=== PATIENT | female | born 1930 | race Caucasian/White ===

== ENCOUNTER 2020-02-15 13:23 | Inpatient (IN) | payer MEDICARE, OTHER ==
[2020-02-15] MEDS ORDERED: Succinylcholine 200 MG/10 ml SYRINGE FS ONE (13:43)
[2020-02-15] MEDS ORDERED: Fentanyl 100 MCG/2 ML VIAL ONE ×2 (14:13→14:41)
[2020-02-15] MEDS ORDERED: Propofol 1,000 MG/100 ML VIAL IV ONE (14:22)
[2020-02-15 14:30] LABS: #Lymphocytes 0.4 thou/uL (1.20-3.40); #Monocytes 0.7 thou/uL (0.11-0.59); #Neutrophils 7.1 thou/uL (1.40-6.50); %Basophils 0.3 % (0.0-1.0); %Eosinophils 0.4 % (0.0-10.0); %Lymphocytes 5.1 % (21.0-51.0); %Monocytes 8.8 % (0.0-10.0); %Neutrophils 85.4 % (42.0-75.0); Hemoglobin 12.4 g/dL (12.0-16.0); Mean Corpuscular HGB CONC 30.4 g/dL (32.0-36.0); Mean Corpuscular Hemoglobin 31.3 pg (27.0-31.0); Platelet Count 248 thou/uL (130-400); Red Blood Cell (RBC) Count 3.98 mill/uL (4.20-5.40); White Blood Cell (WBC) Count 8.3 thou/uL (4.8-10.8)
[2020-02-15 14:30] LABS: Actual Bicarbonate (HCO3a) 38.9 mEq/L (22-28); Analyzer IN Cardio ER; Base Excess (BEa) 11.9 mEq/L (-2.0 to +3.0); Carboxyhemoglobin (COHb) 0.5 gm% (0.0-3.0); Hemoglobin (Hb) 11.8 g/dL (12.0-16.0); O2 Tension (PaO2), arterial 78.7 mmHg (> 60.0); Potassium - ABG Lab 5.51 mmol/L (3.70-5.30); pH, Arterial 7.41 (7.35-7.45)
[2020-02-15] MEDS ORDERED: fentaNYL Citrate/PF 2,000 MCG in Sodium Chloride 0.9% 60 ML IV SCH (14:30)
[2020-02-15 14:35] LABS: CO2 Tension 63.2 mmHg (35.0-45.0); Puncture Site RRA
[2020-02-15 14:36] LABS: INR-International Normal Ratio 1.1; PTT 24.7 sec (22.9-36.1); Prothrombin Time 14.7 sec (12.0-14.7)
[2020-02-15] MEDS ORDERED: Furosemide 40 MG/4 ML VIAL ONE (14:41)
[2020-02-15 14:44] LABS: ALT (SGPT) 61 U/L (8-55); AST (SGOT) 43 U/L (5-34); Alkaline Phosphatase 92 U/L (40-110); BUN (Urea Nitrogen) 55 mg/dL (9.8-20.1); Bilirubin, Total 0.6 mg/dL (0.2-1.2); CK (CPK) 36 U/L (29-168); Calc. Creatinine Clearance 0 mL/min (70-130); Globulin 2.5 g/dL (2.4-3.5); Glucose 202 mg/dL (83-110); Magnesium 2.6 mg/dL (1.6-2.6); Protein, Total 6.5 g/dL (6.0-8.3)
[2020-02-15 14:53] LABS: Anion Gap 19 mmol/L (10-20); Carbon Dioxide 40 mmol/L (23-31); Chloride 92 mmol/L (98-107); Potassium 6.3 mmol/L (3.5-5.1); Sodium 145 mmol/L (136-145)
[2020-02-15 15:06] LABS: CKMB 4.6 ng/mL (0-6.6)
--- NOTE | 2020-02-15 15:43 | RAD ---
PORTABLE CHEST: 02/15/20 HISTORY: Hypoxic, unresponsive. COMPARISON: 01/17/20 exam. Endotracheal and NG tubes are in satisfactory position. Heart size is enlarged. Left sided pleural ch anges are similar to the previous examination. Increased density in the right base suggests increase d right sided effusion. There is what appears to be more of an infiltrative type lung changes in the right lung with a nodular area of infiltrate in the right upper lobe. This has developed since the pr evious 01/17/20 exam. IMPRESSION: 1. Endotracheal and NG tubes in satisfactory position. 2. Left sided pleural and parenchymal lung changes fairly similar to the previous examination. I ncreasing right sided effusion and infiltrative lung changes with what appears to be more of a nodula r infiltrate in the right upper lobe. Changes appear to represent a combination of pulmonary edema an d possible associated pneumonic infiltrate. POS: AH
[2020-02-15 15:50] LABS: SARS-CoV-2 NAA Rapid Test Not Detected (NotDetected)
[2020-02-15 16:23] LABS: Bilirubin Negative (Negative); Blood, Urine Negative (Negative); Clarity Turbid (Clear); Glucose, Urine (Dipstick) Normal (Negative); Ketone, Urine Negative (Negative); Leukocyte Negative Leu/uL (Negative); Nitrite Negative (Negative); Protein, Urine (Dipstick) 20 mg/dL (Neg-Trace); Specific Gravity, Urine 1.014 (1.002-1.036); Urobilinogen Normal mg/dL (Less than 2)
[2020-02-15] MEDS ORDERED: Acetaminophen 650 MG Suppository PR PRN (16:51)
[2020-02-15] MEDS ORDERED: Ondansetron PF 4 MG/2 ML Vial IVP PRN (16:51)
[2020-02-15] MEDS ORDERED: Senokot S 8.6-50 MG TAB PO PRN (16:51)
[2020-02-15] MEDS ORDERED: Ondansetron ODT 4 MG TAB PO PRN (16:51)
[2020-02-15] MEDS ORDERED: Acetaminophen 325 MG TAB PO PRN (16:51)
[2020-02-15] MEDS ORDERED: DISCONTINUE PREVIOUS NARCOTIC PAIN MEDICATIONS AND BENZODIAZEPINES FS SCH (18:00)
[2020-02-15] MEDS ORDERED: Propofol BOLUS 1,000 MG/100 ML VIAL IV PRN (18:00)
[2020-02-15] MEDS ORDERED: Propofol 1,000 MG/100 ML VIAL IV PRN (18:00)
[2020-02-15] MEDS ORDERED: Morphine 2 MG/ML VIAL SLOW IVP PRN (18:00)
[2020-02-15] MEDS ORDERED: Fentanyl BOLUS 250 ML IVPB PRN (18:00)
[2020-02-15 18:22] LABS: Troponin I 0.079 ng/mL (< 0.028)
--- NOTE | 2020-02-15 18:29 | HP ---
PRIMARY CARE PHYSICIAN: [facility]. PRIMARY ENGINEERING AND SCIENTIFIC PROGRAMMER: Joshua Quiñones MD CHIEF COMPLAINT: Shortness of breath. HISTORY OF PRESENT ILLNESS: This is an 89-year-old white female with a known history of diastolic congestive heart failure and atrial fibrillation, who has had problems with hypoxia previously and was on home oxygen at one point per Dr. Quiñones's last note. EMS was called due to the patient having unresponsiveness, was reportedly having more shortness of breath recently per family. When EMS arrived, the patient was hypoxic at 80%. She was put on 4 L nasal cannula, and it came to 92%. She was transported to the emergency room. By the time, she got to the ER, she was on a face mask and saturating in the high 80s. She started desaturating quickly after that when the ER physician came in to talk to her, and then became responsive. She was apparently having a lot of increased work of breathing. It looks like she just got tired out per the ER physician. At that time, she was intubated and put on the ventilator. The patient's blood pressure was initially going to marginal, however, it improved some and then he gave her some Lasix. She also had to be started on some fentanyl for sedation. This caused a temporary blood pressure, but it has resolved now. All history taken from the chart as the patient was recently in [facility] at the beginning of this month. REVIEW OF SYSTEMS: Unable to obtain. PAST MEDICAL HISTORY: 1. Atrial fibrillation with previous ablation and return of atrial fibrillation. 2. Diastolic congestive heart failure with previous hypoxia. 3. Coronary artery disease. 4. 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 5. Post herpetic neuralgia. PAST SURGICAL HISTORY: 1. Cholecystectomy. 2. Hysterectomy. 3. Cardiac ablation. 4. Coronary stents. SOCIAL HISTORY: No tobacco, alcohol, or illicit drug use. The patient lives with her daughter who is her medical decision maker. Her name is Cheri Lim. FAMILY HISTORY: Positive for cardiac disease. ALLERGIES: PENICILLIN. CURRENT MEDICATIONS: Unable to obtain secondary to the patient's mental status. According to discharge summary from [facility] on January 20, the patient was on: 1. Eliquis 5 mg twice a day. 2. Furosemide 40 mg daily. 3. Neurontin 100 mg 3 times a day. 4. Magnesium oxide 400 mg daily. 5. Potassium chloride 20 mEq daily. 6. Digoxin 0.125 mg daily. 7. Cardizem CD 120 mg daily. PHYSICAL EXAMINATION: VITAL SIGNS: Blood pressure 100/75, pulse 100, respirations 14 on the ventilator, temperature 98.8, O2 saturation 100% on the ventilator. GENERAL: This is an elderly white female, who is intubated and sedated on the ventilator. HEENT: Pupils are 2 mm bilateral. They are equally round and they are reactive to light. Oropharynx with the ET tube in place. NECK: Without any deformity or injury visible. HEART: Regular rate and rhythm. No murmurs, rubs, or gallops. LUNGS: The patient has decent air movement throughout with some mild crackles in the left base. ABDOMEN: Soft, nondistended. Normoactive bowel sounds. No hepatosplenomegaly or other masses. EXTREMITIES: The patient has 1+ pitting edema up to about the knees on bilateral lower extremities. SKIN: No rashes or lesions noted. NEUROLOGIC: The patient is currently sedated, unable to follow commands. LABORATORY DATA: CBC with a white blood cell count of 8.3; neutrophils 85%; hemoglobin, hematocrit, and platelets are all normal. Coagulation profile within normal limits. Arterial blood gas on the vent shows a normal pH, pCO2 of 63, and pO2 of 78. Complete metabolic panel is notable for potassium of 6.3, BUN of 55, creatinine of 1.32, carbon dioxide is 40, chloride is 92, glucose was 202, AST was 43, ALT of 61. The rest was normal. CK-MB was negative. Troponin was indeterminate x1 of 0.072 is the current level that is being down from 0.222 at her last hospitalization. Her brain natriuretic peptide is elevated at 1338. This is actually less than her last admission as well at 2880. EKG done in the emergency room shows atrial fibrillation with controlled ventricular response. There are some PVCs. There is a right bundle-branch block and left anterior fascicular block and some nonspecific T-wave changes. Chest x-ray, I did review the chest x-ray done in the emergency room along with the radiologist's report. It does show a persistent left-sided pleural effusion and then some possibly worsened either some increasing right-sided effusion and infiltrative lung changes more nodular in the right upper lobe could be pulmonary edema and possible associated pneumonic infiltration. Rapid influenza A and B and COVID test were all negative. ASSESSMENT: 1. Acute respiratory failure with hypoxia and hypercapnia. The patient is currently intubated and ventilated and now saturating well. Suspect this underlying congestive heart failure is the etiology. No significant evidence of infection at this time. There was a note of her being do not attempt resuscitation at her last admission; however, this was not made note of to the EMS when they picked her up over to the emergency room and she is currently intubated. We will have Palliative Care consult and discuss with family about what the patient's wishes were. We will consult Pulmonology for vent management. 2. [id number] diastolic congestive heart failure, uncertain if the patient's volume status is worse than it was earlier in the month. Her BNP is actually less than it was. Her creatinine has actually bumped up. This could be due to congestion, but it also could be due to the diuresis and a drop in her fluid status. I am more suspicious due to her chest x-ray of worsening congestive changes at this time, so we will give Lasix 40 mg IV twice a day and watch her creatinine closely as well as her blood pressure. We will consult Cardiology. 3. Hyperkalemia, possibly due to her oral supplementation along with acute renal failure. We will hold any oral supplements for now. We will monitor this closely. If it climbs further, we will need to get Nephrology involved. 4. Atrial fibrillation, currently with controlled rate. We will continue home medications and Eliquis if we can get a stomach tube placed. If not, then can convert to Lovenox and IV digoxin. 5. Gastrointestinal prophylaxis. We will put the patient on Pepcid twice a day. 6. Deep venous thrombosis prophylaxis. The patient is already on anticoagulation. 7. Code status, undetermined at this time. The patient's medical decision maker is her daughter, Cheri Lim. Job ID: [id number]
[2020-02-15 19:06] LABS: Potassium 5.2 mmol/L (3.5-5.1)
[2020-02-15 19:19] LABS: Actual Bicarbonate (HCO3a) 41.2 mEq/L (22-28); Base Excess (BEa) 18.2 mEq/L (-2.0 to +3.0); CO2 Tension 41.5 mmHg (35.0-45.0); Calcium, Ionized (arterial) 1.04 mmol/L (1.12-1.30); Carboxyhemoglobin (COHb) 0.9 gm% (0.0-3.0); Hemoglobin (Hb) 10.9 g/dL (12.0-16.0); Potassium - ABG Lab 4.26 mmol/L (3.70-5.30)
[2020-02-15 19:21] LABS: O2 Tension (PaO2), arterial 58.5 mmHg (> 60.0); pH, Arterial 7.62 (7.35-7.45)
[2020-02-15 19:22] LABS: ALV-art Gradient 174.825 mmHg (0-20); Puncture Site LRA
[2020-02-15] MEDS: Apixaban 5 MG TAB PO SCH (20:44)
[2020-02-15] MEDS: Famotidine/PF 20 mg/2ml Vial SLOW IVP SCH (20:44)
[2020-02-15 20:50] LABS: Troponin I 0.082 ng/mL (< 0.028)
[2020-02-16 04:02] LABS: #Lymphocytes 0.2 thou/uL (1.20-3.40); #Monocytes 0.8 thou/uL (0.11-0.59); #Neutrophils 5.2 thou/uL (1.40-6.50); %Basophils 0.1 % (0.0-1.0); %Eosinophils 0.1 % (0.0-10.0); %Lymphocytes 3.3 % (21.0-51.0); %Monocytes 12.7 % (0.0-10.0); %Neutrophils 83.7 % (42.0-75.0); Hemoglobin 10.2 g/dL (12.0-16.0); Mean Corpuscular HGB CONC 31.7 g/dL (32.0-36.0); Mean Corpuscular Hemoglobin 31.3 pg (27.0-31.0); Mean Corpuscular Volume 98.5 fL (78.0-98.0); Mean Platelet Volume 8.3 fL (7.4-10.4); Platelet Count 164 thou/uL (130-400); Red Blood Cell (RBC) Count 3.25 mill/uL (4.20-5.40); White Blood Cell (WBC) Count 6.3 thou/uL (4.8-10.8)
[2020-02-16 04:08] LABS: BUN (Urea Nitrogen) 58 mg/dL (9.8-20.1); Calc. Creatinine Clearance 41 mL/min (70-130); Calcium 8.3 mg/dL (7.8-10.44); Glucose 115 mg/dL (83-110)
[2020-02-16 04:17] LABS: Anion Gap 18 mmol/L (10-20); Carbon Dioxide 38 mmol/L (23-31); Chloride 94 mmol/L (98-107); Potassium 4.7 mmol/L (3.5-5.1); Sodium 145 mmol/L (136-145)
[2020-02-16] MEDS: Furosemide 40 MG/4 ML VIAL SLOW IVP SCH ×2 (05:58→13:16)
[2020-02-16 08:24] LABS: Actual Bicarbonate (HCO3a) 42.5 mEq/L (22-28); Base Excess (BEa) 15.5 mEq/L (-2.0 to +3.0); Calcium, Ionized (arterial) 1.07 mmol/L (1.12-1.30); Carboxyhemoglobin (COHb) 1.1 gm% (0.0-3.0); Hemoglobin (Hb) 11.7 g/dL (12.0-16.0); O2 Tension (PaO2), arterial 76.4 mmHg (> 60.0); Potassium - ABG Lab 4.43 mmol/L (3.70-5.30); pH, Arterial 7.44 (7.35-7.45)
[2020-02-16 08:26] LABS: CO2 Tension 64.7 mmHg (35.0-45.0); Puncture Site LBA
[2020-02-16 08:27] LABS: ALV-art Gradient 127.925 mmHg (0-20)
[2020-02-16] MEDS: Apixaban 5 MG TAB PO SCH ×2 (09:12→20:58)
[2020-02-16] MEDS ORDERED: Digoxin 0.5 MG/2 ML AMP SLOW IVP SCH (09:15)
[2020-02-16] MEDS: Digoxin 0.125 MG TAB PO SCH (09:17)
--- NOTE | 2020-02-16 09:55 | CON ---
DATE OF CONSULTATION: 02/16/2020 INDICATION FOR CONSULTATION: An 89-year-old female with acute congestive heart failure as well as atrial fibrillation. HISTORY OF PRESENT ILLNESS: This 89-year-old female, who has a history of diastolic dysfunction as well as atrial fibrillation, which has been difficult to control. She has undergone a cardioversion of atrial fibrillation recently, but then returned back to atrial fibrillation. She has had problems with left ventricular outflow tract obstruction and has been treated medically. This is seemingly improved. Her left ventricular systolic function apparently has been normal. Apparently, she was at home, was found unresponsive, had decreased O2 saturations, brought to the emergency room and underwent intubation. She is now in the intensive care unit. She remains in atrial fibrillation and the heart rate is anywhere between one teens to 130s. She is hypotensive. Blood pressure is in the 80s over 60s. She is on, I believe, Diprivan also for sedation as she becomes somewhat agitated when she is more arousable. Her O2 saturations are 100% and respiratory rate is 25 on the ventilator. At this time, mainly we need to slow down the heart rate to see that if we can get atrial fibrillation under better control. She apparently has been frequently being seen in the office by Dr. Quiñones due to her continued lower extremity edema and he has been trying to treat this with medications. PAST MEDICAL HISTORY: Significant for coronary artery disease. She has undergone angioplasty and stent placement. She has a history of diastolic dysfunction, history of atrial fibrillation, history of ventricular outflow tract obstruction. She has had postherpetic neuralgia. She has a history of hysterectomy and cholecystectomy. She has had an ablation in the past. SOCIAL HISTORY: There is no alcohol or tobacco abuse. She lives at home. FAMILY HISTORY: Positive for cardiac disease. ALLERGIES: SHE IS ALLERGIC TO PENICILLIN. MEDICATIONS: Prior to admission include: 1. Eliquis. 2. Furosemide. 3. Neurontin. 4. Magnesium. 5. Potassium. 6. Digoxin. 7. Cardizem. At this time, she mainly is on the Eliquis, has been given p.o. digoxin and Lasix. REVIEW OF SYSTEMS: Unobtainable. PHYSICAL EXAMINATION: GENERAL: Reveals an elderly female, who is on the ventilator. She is sedated. VITAL SIGNS: Heart rates in the 120s at this time and shows atrial fibrillation. Blood pressure is 82/65, O2 saturation is 100%, respiratory rate approximately 11 to 15 breaths per minute. HEENT: Unremarkable. CHEST: Has decreased breath sounds in the bases. I do not hear significant rales, rhonchi, or wheezing. CARDIOVASCULAR: Reveals an irregularly irregular rhythm with tachycardia. ABDOMEN: Soft and nontender. Positive bowel sounds are present. EXTREMITIES: 1 to 2+ lower extremity edema mainly around the ankle and lower legs. NEUROLOGICAL: The patient is sedated. LABORATORY DATA: Shows a WBC of 6.3, hemoglobin is 10.2, platelet count 164,000. Sodium was 145, potassium 4.7, BUN was 58 with a creatinine of 1.07, blood sugar was 115. Troponin I was slightly abnormal at 0.07, increased up to 0.082. Her BNP was 1338. Chest x-ray shows diffuse infiltrates compatible with either possible pneumonia or congestive heart failure symptoms. An echocardiogram is still pending. She did have a normal ejection fraction on previous echocardiogram. We will repeat the echocardiogram for evaluation of left ventricular systolic function. Her admitting EKG showed a heart rate of 82 beats per minute with a right bundle branch block and atrial fibrillation with occasional PVCs. Since that time, she has become more tachycardic with atrial fibrillation. IMPRESSION: 1. Congestive heart failure symptoms. She has both diastolic dysfunction and has a history of outflow tract obstruction. At this time, the atrial fibrillation is exacerbating her problems. I will try to slow the heart rate down and we will obtain an echocardiogram. 2. Atrial fibrillation. The heart rate is significantly elevated. She was up to 150 at time I have noticed on the monitor. At this time, I will give IV digoxin, it is difficult to treat her with other medications at this time since her blood pressure is significantly decreased. Maybe if she is able to awake and a little bit blood pressure may come up when she is off the Diprivan, but this time it is very difficult to give medications for the tachycardia. We will try to control with digoxin at this time. 3. History of left ventricular outflow tract obstruction. We will review this with the echocardiogram. 4. History of coronary artery disease. She is status post stent placement. Her cardiac enzymes are slightly elevated, but most likely indeterminate. This most likely indicates a type 2 myocardial infarction due to her respiratory failure. 5. History of hypertension in the past. At this time, she is hypotensive. We will be more than happy to continue to follow the patient with you, but obviously she is a very ill patient and has been chronically ill for some time. Job ID: [id number] MTDD
--- NOTE | 2020-02-16 09:57 | RAD ---
EXAM: Chest one view: HISTORY: Congestive heart failure respiratory insufficiency COMPARISON: 02/15/2020 FINDINGS: Life support tubes in place. Heart size: Stable heart size. Lungs: Extensive bilateral alveolar, interstitial, and groundglass opacity changes with moderate bila teral pleural effusions, overall stable. No significant new process. IMPRESSION: Stable exam.
[2020-02-16] MEDS: fentaNYL Citrate/PF 2,000 MCG in Sodium Chloride 0.9% 60 ML IV SCH (12:59)
--- NOTE | 2020-02-16 13:29 | PDOC.HOSPP ---
- Subjective Encounter Date: 02/16/20 Encounter Time: 07:00 Subjective: Patient seen for follow-up regarding acute hypoxic respiratory failure. She is currently intubated, could not complete review of systems. - Objective Vital Signs & Weight: Vital Signs (12 hours) Temp Pulse Resp BP Pulse Ox 02/16/20 10:34 118 H 113/75 02/16/20 10:00 8 L 02/16/20 09:55 135 H 02/16/20 09:17 123 H 02/16/20 08:00 8 L 100 02/16/20 07:08 108 H 123/86 98 02/16/20 07:00 98.5 F 02/16/20 06:00 8 L 02/16/20 04:00 99.1 F 8 L 02/16/20 02:39 114 H 94/68 02/16/20 02:00 8 L Weight Admit Weight 158 lb Weight 158 lb 3.2 oz Most Recent Monitor Data Heart Rate from ECG 113 NIBP 174/100 NIBP BP-Mean 124 Respiration from ECG 25 SpO2 99 I&O: 02/15/20 02/16/20 02/17/20 06:59 06:59 06:59 Intake Total 34.5 Output Total 2235 650 Balance -2200.5 -650 Result Diagrams: 02/16/20 03:25 02/16/20 03:25 Additional Labs: I reviewed patient's labs and MAR EKG Reviewed by me: Yes (Tosha nieves with RVR on telemetry) Hospitalist ROS - Review of Systems ROS unobtainable: due to endotracheal tube - Medication Medications: Active Medications Generic Name Dose Route Start Last Admin Trade Name Jose Eduardo PRN Reason Stop Dose Admin Apixaban 5 mg 02/15/20 21:00 02/16/20 09:12 Apixaban 5 Mg Tab PO 5 mg BID FADIA Administration Digoxin 0.125 mg 02/16/20 09:00 02/16/20 09:17 Digoxin 0.125 Mg Tab PO 0.125 mg DAILY FADIA Administration Famotidine 20 mg 02/15/20 21:00 02/15/20 20:44 Famotidine/Pf 20 Mg/2ml Vial SLOW IVP 20 mg 2100 FADIA Administration Furosemide 40 mg 02/16/20 06:00 02/16/20 13:16 Furosemide 40 Mg/4 Ml Vial SLOW IVP 40 mg 0600,1400 FADIA Administration Fentanyl Citrate 2,000 mcg/ 100 mls @ 0 mls/hr 02/15/20 18:00 02/16/20 12:59 Sodium Chloride IV 03/16/20 18:00 100 mls INF FADIA Administration Protocol Per Protocol - Exam General - other findings: Intubated Eye: anicteric sclera ENT: normocephalic atraumatic Neck: no thyromegaly Heart: irregular Respiratory - other findings: Bibasal crackles Gastrointestinal: soft, normal bowel sounds Extremities: 1+ LE edema Skin: no rashes Psychiatric - other findings: Unable to assess Hosp A/P (1) Acute respiratory failure with hypoxia Code(s): J96.01 - ACUTE RESPIRATORY FAILURE WITH HYPOXIA Status: Acute (2) Atrial fibrillation with rapid ventricular response Code(s): I48.91 - UNSPECIFIED ATRIAL FIBRILLATION Status: Acute (3) Acute on chronic diastolic congestive heart failure, NYHA class 3 Code(s): I50.33 - ACUTE ON CHRONIC DIASTOLIC (CONGESTIVE) HEART FAILURE Status: Acute (4) Pneumonia Code(s): J18.9 - PNEUMONIA, UNSPECIFIED ORGANISM Status: Acute - Plan plan discussed w/ family, continue antibiotics Continue IV furosemide. Await 2D echocardiogram. Continue IV cefepime. Pulmonology following, cardiology following as well. Patient is currently intubated and mechanically ventilated. Discussed with daughter by bedside. Updated her and discussed regarding CODE STATUS. Patient is DNAR.
[2020-02-16] MEDS: Cefepime 1 GM in Sodium Chloride 0.9% 100 ML IVPB SCH (20:55)
[2020-02-16] MEDS: Famotidine/PF 20 mg/2ml Vial SLOW IVP SCH (20:56)
[2020-02-16] MEDS: Lorazepam 2 MG/ML VIAL SLOW IVP PRN (22:18)
[2020-02-17 04:51] LABS: #Lymphocytes 0.2 thou/uL (1.20-3.40); #Neutrophils 8.1 thou/uL (1.40-6.50); %Eosinophils 0.1 % (0.0-10.0); %Lymphocytes 2.4 % (21.0-51.0); %Monocytes 10.6 % (0.0-10.0); %Neutrophils 86.9 % (42.0-75.0); Hemoglobin 10.6 g/dL (12.0-16.0); Mean Corpuscular HGB CONC 31.2 g/dL (32.0-36.0); Mean Corpuscular Hemoglobin 30.8 pg (27.0-31.0); Mean Corpuscular Volume 98.8 fL (78.0-98.0); Mean Platelet Volume 8.7 fL (7.4-10.4); Platelet Count 164 thou/uL (130-400); Red Blood Cell (RBC) Count 3.44 mill/uL (4.20-5.40); White Blood Cell (WBC) Count 9.4 thou/uL (4.8-10.8)
[2020-02-17 04:54] LABS: BUN (Urea Nitrogen) 55 mg/dL (9.8-20.1); Calc. Creatinine Clearance 37 mL/min (70-130); Calcium 8.1 mg/dL (7.8-10.44); Glucose 112 mg/dL (83-110)
[2020-02-17 05:04] LABS: Anion Gap 19 mmol/L (10-20); Carbon Dioxide 39 mmol/L (23-31); Chloride 94 mmol/L (98-107); Potassium 4.2 mmol/L (3.5-5.1); Sodium 148 mmol/L (136-145)
[2020-02-17] MEDS: Furosemide 40 MG/4 ML VIAL SLOW IVP SCH ×2 (05:41→13:49)
--- NOTE | 2020-02-17 06:57 | CON ---
DATE OF CONSULTATION: HISTORY OF PRESENT ILLNESS: Stephanie Constantino is an 89-year-old female with history of apparently congestive heart failure. The echo showed diastolic dysfunction. She came into the ER yesterday with progressive respiratory failure. She is intubated in the vent. Her daughter is at the bedside states she was recently at a different hospital. Apparently had a cardioversion done then ever since then her legs have been swelling. She is getting weaker, more short of breath. She is nonsmoker. No prior history of TB, pneumonia or bronchial asthma. She is relatively active according to the daughter. She is intubated because of hypoxemia apparently. PAST MEDICAL HISTORY: Atrial fibrillation, diastolic dysfunction, coronary artery disease, previous herpes. PAST SURGICAL HISTORY: Previous surgery of gallbladder, hysterectomy, cardiac ablation, cardioversion. HOME MEDICATIONS: Includes, 1. Cardizem 120. 2. Digoxin 0.125. 3. Potassium. 4. Magnesium. 5. Gabapentin 100. 6. Lasix 40. 7. Eliquis 5. 8. Metoprolol 25 twice a day. ALLERGIES: PENICILLIN. REVIEW OF SYSTEMS: Otherwise, unobtainable. She is sedated. PHYSICAL EXAMINATION: GENERAL: Temperature 98, pulse is 114, blood pressure 130/80, sats 99%. CHEST: Decreased breath sounds. No wheezing. CARDIAC: Normal S1, S2. No gallops. ABDOMEN: No masses. LABORATORY DATA: PO2 is 76, pCO2 64, pH 7.44. Her white count 6.3, H and H 10.2 and 32, platelet count 164. Creatinine is , BUN is 58. X-ray shows left-sided pleural effusion. Acute on chronic respiratory failure, CHF, diastolic dysfunction, left pleural effusion, SVT, lower extremity swelling. I will continue present vent support. Minimize sedation. Cardiology is involved. I may empirically start her on antibiotic. We will wean when stable. This is a 45-minute critical time. Job ID: [id number]
[2020-02-17] MEDS: Digoxin 0.125 MG TAB PO SCH (07:35)
[2020-02-17] MEDS: Cefepime 1 GM in Sodium Chloride 0.9% 100 ML IVPB SCH ×2 (07:35→20:49)
[2020-02-17] MEDS: Apixaban 5 MG TAB PO SCH ×2 (07:36→20:48)
[2020-02-17 07:50] LABS: Base Excess (BEa) 18.7 mEq/L (-2.0 to +3.0); Calcium, Ionized (arterial) 1.04 mmol/L (1.12-1.30); Carboxyhemoglobin (COHb) 0.8 gm% (0.0-3.0); Hemoglobin (Hb) 12.2 g/dL (12.0-16.0); O2 Tension (PaO2), arterial 76.6 mmHg (> 60.0); Potassium - ABG Lab 3.93 mmol/L (3.70-5.30); pH, Arterial 7.45 (7.35-7.45)
[2020-02-17 07:51] LABS: CO2 Tension 67.4 mmHg (35.0-45.0)
[2020-02-17 07:52] LABS: Puncture Site LRA
[2020-02-17] MEDS ORDERED: FLU VACC QS2020-21(65YR UP)/PF 240 MCG/0.7 ML SYRINGE IM ONE (09:00)
--- NOTE | 2020-02-17 09:13 | RAD ---
Chest one view HISTORY: Dyspnea. Follow-up. COMPARISON: 02/16/2020. FINDINGS: Left cardiac margin remains partially obscured by left pleural fluid and basilar atelectasi s that are similar in appearance to the prior exam. Mediastinum is midline. Lines and tubes unchanged in position. Pulmonary vasculature is engorged. Hazy opacity at the right base may represent small amount right pl eural fluid. Widespread fine reticulonodular opacity is not significantly changed. Skinfold over the lateral aspec t of the right upper chest again demonstrated, beyond which lung markings extend. IMPRESSION : Pleural fluid, left greater than right, and other findings are stable.
--- NOTE | 2020-02-17 11:13 | EKG ---
Test Reason : Blood Pressure : / mmHG Vent. Rate : 082 BPM Atrial Rate : 085 BPM P-R Int : 000 ms QRS Dur : 130 ms QT Int : 354 ms P-R-T Axes : 000 -60 108 degrees QTc Int : 413 ms Atrial fibrillation with premature ventricular or aberrantly conducted complexes Right bundle branch block Left anterior fascicular block Bifascicular block T wave abnormality, consider lateral ischemia or digitalis effect Abnormal ECG Confirmed by YOBANY KIRK DO ([id number]), editorial manager LOS PERRY ([id number]) on 02/17/2020 11:13:11 AM Referred By: Confirmed By:YOBANY KIRK DO
--- NOTE | 2020-02-17 11:31 | PRG ---
DATE OF SERVICE: SUBJECTIVE: Ms. Constantino remains intubated on the ventilator. She is resting comfortably. OBJECTIVE: VITAL SIGNS: Blood pressure is 131/99; pulse is in the 80 to 90 range, now it is irregular. LUNGS: Clear. CARDIAC: Irregularly irregular with a 2 to 3/6 systolic murmur. ABDOMEN: Soft, nontender. EXTREMITIES: Only mild edema. ASSESSMENT: 1. Congestive heart failure, diastolic, acute on chronic, slowly improving. 2. Atrial fibrillation, chronic, persistent. PLAN: 1. Continue diuretics. 2. Continue anticoagulation. Hopefully, she will improve to the point where she can be weaned off the ventilator. Job ID: [id number]
--- NOTE | 2020-02-17 12:43 | PRG ---
DATE OF SERVICE: 02/17/2020 SUBJECTIVE: Stephanie Constantino is an 89-year-old female, remains in the ICU, intubated, encephalopathic. OBJECTIVE: VITAL SIGNS: Temperature 98, pulse 101, blood pressure 120/86, saturations 100%. CHEST: Decreased breath sounds. No wheezing. CARDIAC: Normal S1 and S2. ABDOMEN: No masses. LABORATORY DATA: White count 9000, platelet count is normal. PO2 of 76, pCO2 64, pH 7.45 on a rate of 8, 40%. Creatinine is 1, BUN 55. X-ray shows left pleural effusion. ASSESSMENT: Diastolic dysfunction, respiratory failure, possibly pneumonia, left effusion, encephalopathy. PLAN: We need to minimize sedation. We are going to wean and try to get her off the vent. We will start nutrition. One-half hour of critical care time. Job ID: [id number]
--- NOTE | 2020-02-17 16:10 | PDOC.HOSPP ---
- Subjective Encounter Date: 02/17/20 Encounter Time: 09:30 Subjective: Patient seen for follow-up regarding acute hypoxic respiratory failure. Still intubated, could not complete review of systems. - Objective Vital Signs & Weight: Vital Signs (12 hours) Temp Pulse Resp BP Pulse Ox 02/17/20 14:41 115 H 119/89 02/17/20 13:58 8 L 02/17/20 12:00 8 L 02/17/20 10:24 101 H 131/99 H 02/17/20 10:00 8 L 02/17/20 08:00 98.6 F 8 L 99 02/17/20 07:35 117 H 02/17/20 06:47 117 H 89/68 L 100 02/17/20 06:00 8 L Weight Admit Weight 158 lb Weight 157 lb 1.6 oz Most Recent Monitor Data Heart Rate from ECG 113 NIBP 108/80 NIBP BP-Mean 89 Respiration from ECG 27 SpO2 100 I&O: 02/16/20 02/17/20 02/18/20 06:59 06:59 06:59 Intake Total 34.5 202.1 14.5 Output Total 2235 2090 975 Balance -2200.5 -1887.9 -960.5 Result Diagrams: 02/17/20 03:41 02/17/20 03:41 Additional Labs: Labs and MAR reviewed by ak Hospitalist ROS - Review of Systems ROS unobtainable: due to endotracheal tube - Medication Medications: Active Medications Generic Name Dose Route Start Last Admin Trade Name Freq PRN Reason Stop Dose Admin Apixaban 5 mg 02/15/20 21:00 02/17/20 07:36 Apixaban 5 Mg Tab PO 5 mg BID FADIA Administration Digoxin 0.125 mg 02/16/20 09:00 02/17/20 07:35 Digoxin 0.125 Mg Tab PO 0.125 mg DAILY FADIA Administration Famotidine 20 mg 02/15/20 21:00 02/16/20 20:56 Famotidine/Pf 20 Mg/2ml Vial SLOW IVP 20 mg 2100 FADIA Administration Furosemide 40 mg 02/16/20 06:00 02/17/20 13:49 Furosemide 40 Mg/4 Ml Vial SLOW IVP 40 mg 0600,1400 FADIA Administration Fentanyl Citrate 2,000 mcg/ 100 mls @ 0 mls/hr 02/15/20 18:00 02/16/20 12:59 Sodium Chloride IV 03/16/20 18:00 100 mls INF FADIA Administration Protocol Per Protocol Cefepime HCl 1 gm/ Sodium 100 mls @ 200 mls/hr 02/16/20 21:00 02/17/20 07:35 Chloride IVPB 100 mls Q12HR FADIA Administration Lorazepam 2 mg 02/15/20 18:00 02/16/20 22:18 Lorazepam 2 Mg/Ml Vial SLOW IVP 03/16/20 18:00 2 mg Q1H PRN Administration Breakthrough agitation Propofol 1,000 mg 02/15/20 18:00 02/16/20 18:34 Propofol 1,000 Mg/100 Ml Vial IV 03/16/20 18:00 1,000 mg INF PRN Administration TO ACHIEVE GOAL RASS Protocol - Exam General - other findings: Intubated and mechanically ventilated ENT: normocephalic atraumatic Neck: supple Heart: irregular Respiratory - other findings: Bilateral crackles Gastrointestinal: soft Skin: no rashes Psychiatric - other findings: Could not assess Hosp A/P (1) Acute respiratory failure with hypoxia Code(s): J96.01 - ACUTE RESPIRATORY FAILURE WITH HYPOXIA Status: Acute (2) Atrial fibrillation with rapid ventricular response Code(s): I48.91 - UNSPECIFIED ATRIAL FIBRILLATION Status: Acute (3) Acute on chronic diastolic congestive heart failure, NYHA class 3 Code(s): I50.33 - ACUTE ON CHRONIC DIASTOLIC (CONGESTIVE) HEART FAILURE Status: Acute (4) Pneumonia Code(s): J18.9 - PNEUMONIA, UNSPECIFIED ORGANISM Status: Acute - Plan Continue IV furosemide. LVEF 60 to 65%, possible diastolic dysfunction. Continue IV cefepime for pneumonia. Pulmonology and cardiology following. Patient is currently intubated and mechanically ventilated. Updated patient's daughter was bedside.
[2020-02-17] MEDS: Famotidine/PF 20 mg/2ml Vial SLOW IVP SCH (20:49)
[2020-02-17] MEDS: fentaNYL Citrate/PF 2,000 MCG in Sodium Chloride 0.9% 60 ML IV SCH (22:37)
[2020-02-17] MEDS: Lorazepam 2 MG/ML VIAL SLOW IVP PRN (22:38)
[2020-02-18 04:26] LABS: #Basophils 0.1 thou/uL (0.0-0.2); #Lymphocytes 0.2 thou/uL (1.20-3.40); #Monocytes 1.4 thou/uL (0.11-0.59); #Neutrophils 8.6 thou/uL (1.40-6.50); %Basophils 0.6 % (0.0-1.0); %Eosinophils 0.3 % (0.0-10.0); %Lymphocytes 1.9 % (21.0-51.0); %Monocytes 13.2 % (0.0-10.0); Hemoglobin 11.2 g/dL (12.0-16.0); Mean Corpuscular HGB CONC 30.9 g/dL (32.0-36.0); Mean Corpuscular Hemoglobin 30.7 pg (27.0-31.0); Mean Corpuscular Volume 99.2 fL (78.0-98.0); Mean Platelet Volume 8.6 fL (7.4-10.4); Platelet Count 172 thou/uL (130-400); RBC Distribution Width 13.1 % (11.5-14.5); Red Blood Cell (RBC) Count 3.66 mill/uL (4.20-5.40); White Blood Cell (WBC) Count 10.2 thou/uL (4.8-10.8)
[2020-02-18 04:49] LABS: BUN (Urea Nitrogen) 66 mg/dL (9.8-20.1); Calc. Creatinine Clearance 30 mL/min (70-130); Calcium 8.2 mg/dL (7.8-10.44); Glucose 191 mg/dL (83-110)
[2020-02-18 04:58] LABS: Anion Gap 22 mmol/L (10-20); Chloride 93 mmol/L (98-107); Potassium 3.8 mmol/L (3.5-5.1); Sodium 153 mmol/L (136-145)
[2020-02-18 05:03] LABS: Carbon Dioxide 42 mmol/L (23-31)
[2020-02-18] MEDS: Furosemide 40 MG/4 ML VIAL SLOW IVP SCH (05:10)
[2020-02-18 07:13] LABS: Actual Bicarbonate (HCO3a) 48.5 mEq/L (22-28); Base Excess (BEa) 21.3 mEq/L (-2.0 to +3.0); Calcium, Ionized (arterial) 1.03 mmol/L (1.12-1.30); Carboxyhemoglobin (COHb) 0.6 gm% (0.0-3.0); pH, Arterial 7.47 (7.35-7.45)
[2020-02-18 07:15] LABS: CO2 Tension 67.6 mmHg (35.0-45.0); Puncture Site RRA
[2020-02-18] MEDS: Cefepime 1 GM in Sodium Chloride 0.9% 100 ML IVPB SCH ×2 (08:49→20:34)
[2020-02-18] MEDS: Apixaban 5 MG TAB PO SCH ×2 (08:50→20:34)
[2020-02-18] MEDS: Digoxin 0.125 MG TAB PO SCH (08:50)
--- NOTE | 2020-02-18 10:07 | RAD ---
Chest one view HISTORY: Dyspnea. Follow-up. COMPARISON: 02/17/2020. FINDINGS: Cardiac silhouette is magnified and partially obscured by bilateral pleural fluid that is u nchanged from the prior study. Pulmonary vasculature engorged. Mediastinum is midline with lines and tubes unchanged in position. Subtle ill-defined patchy areas involving the lower lobes are stable. No evidence of pneumothorax. IMPRESSION : Pleural fluid and other findings are stable.
--- NOTE | 2020-02-18 10:10 | PRG ---
DATE OF SERVICE: 02/18/2020 SUBJECTIVE: Ms. Constantino remains intubated and ventilated. OBJECTIVE: VITAL SIGNS: Her blood pressure 112/85, pulse is 120, it is atrial fibrillation. LUNGS: Clear. CARDIAC: She is tachycardic and irregular with a systolic murmur as before. ABDOMEN: Soft, nontender. EXTREMITIES: No edema. PERTINENT LABORATORY DATA: Sodium is up to 153, CO2 is 42. ASSESSMENT: 1. Diastolic heart failure, probably volume contracted. 2. Renal failure worsened, probably overdiuresed. 3. Hyponatremia. PLAN: 1. Stop intravenous diuretics. 2. Continue digoxin. 3. Check digoxin level tomorrow. 4. Continue anticoagulation. If creatinine increases, may need to reduce Eliquis dose. Job ID: [id number]
[2020-02-18] MEDS: Dextrose 5% in Water 1,000 ML IV SCH (10:20)
--- NOTE | 2020-02-18 10:37 | PRG ---
DATE OF SERVICE: 02/18/2020 SUBJECTIVE: An 89-year-old female, remains intubated in the vent, off sedation. OBJECTIVE: VITAL SIGNS: Pulse is 110 and irregular, blood pressure 120/80, saturations are 100%, respirations 14. I's and O's have been consistently negative. CHEST: No wheezing. No crackles. CARDIAC: Normal S1. ABDOMEN: No masses. DIAGNOSTIC STUDIES: X-ray still shows pleural effusion. White count 10,000. PO2 is 81 rate 40%. Bicarb is 42, sodium 153. BUN and creatinine are elevated. ASSESSMENT AND PLAN: Multiorgan failure, congestive heart failure, respiratory failure, azotemia, possible pneumonia. Started D5W. Continue antibiotics until she is much improved neurologically going to wean her. Try to minimize sedation. Discontinue diuretics. One-half hour of critical care time. Job ID: [id number]
--- NOTE | 2020-02-18 16:05 | PDOC.HOSPP ---
- Subjective Encounter Date: 02/18/20 Encounter Time: 15:30 Subjective: Patient seen for follow-up for acute hypoxic respiratory failure. Patient is currently intubated, could not complete review of systems. - Objective Vital Signs & Weight: Vital Signs (12 hours) Pulse Resp Pulse Ox 02/18/20 14:21 98 02/18/20 14:00 8 L 02/18/20 11:53 8 L 02/18/20 11:09 117 H 02/18/20 10:00 8 L 02/18/20 08:50 91 02/18/20 08:00 8 L 02/18/20 07:10 91 02/18/20 07:03 100 02/18/20 06:00 8 L Weight Admit Weight 158 lb Weight 158 lb 6.4 oz Most Recent Monitor Data Heart Rate from ECG 114 NIBP 92/56 NIBP BP-Mean 68 Respiration from ECG 8 SpO2 100 I&O: 02/17/20 02/18/20 02/19/20 06:59 06:59 06:59 Intake Total 202.1 590.5 126 Output Total 2090 1715 430 Balance -1887.9 -1124.5 -304 Result Diagrams: 02/18/20 03:42 02/18/20 03:42 Additional Labs: I reviewed patient's labs and MAR EKG Reviewed by me: Yes (Telemetry: Tosha nieves) Hospitalist ROS - Review of Systems ROS unobtainable: due to endotracheal tube - Medication Medications: Active Medications Generic Name Dose Route Start Last Admin Trade Name Freq PRN Reason Stop Dose Admin Apixaban 5 mg 02/15/20 21:00 02/18/20 08:50 Apixaban 5 Mg Tab PO 5 mg BID FADIA Administration Famotidine 20 mg 02/15/20 21:00 02/17/20 20:49 Famotidine/Pf 20 Mg/2ml Vial SLOW IVP 20 mg 2100 FADIA Administration Fentanyl Citrate 2,000 mcg/ 100 mls @ 0 mls/hr 02/15/20 18:00 02/17/20 22:37 Sodium Chloride IV 03/16/20 18:00 100 mls INF FADIA Administration Protocol Per Protocol Cefepime HCl 1 gm/ Sodium 100 mls @ 200 mls/hr 02/16/20 21:00 02/18/20 08:49 Chloride IVPB 100 mls Q12HR FDAIA Administration Dextrose/Water 1,000 mls @ 50 mls/hr 02/18/20 10:00 02/18/20 10:20 D5w IV 1,000 mls .Q20H FADIA Administration Lorazepam 2 mg 02/15/20 18:00 02/17/20 22:38 Lorazepam 2 Mg/Ml Vial SLOW IVP 03/16/20 18:00 2 mg Q1H PRN Administration Breakthrough agitation Propofol 1,000 mg 02/15/20 18:00 02/16/20 18:34 Propofol 1,000 Mg/100 Ml Vial IV 03/16/20 18:00 1,000 mg INF PRN Administration TO ACHIEVE GOAL RASS Protocol Sodium Chloride 10 ml 02/17/20 21:00 02/18/20 08:51 Flush - Normal Saline 10 Ml Syringe IVF 10 ml Q12HR FADIA Administration - Exam General - other findings: Intubated ENT: normocephalic atraumatic Heart: irregular Respiratory - other findings: Bilateral crackles Gastrointestinal: soft, non-tender Skin: no rashes Psychiatric - other findings: Could not assess Hosp A/P (1) Acute respiratory failure with hypoxia Code(s): J96.01 - ACUTE RESPIRATORY FAILURE WITH HYPOXIA Status: Acute (2) Atrial fibrillation with rapid ventricular response Code(s): I48.91 - UNSPECIFIED ATRIAL FIBRILLATION Status: Acute (3) Acute on chronic diastolic congestive heart failure, NYHA class 3 Code(s): I50.33 - ACUTE ON CHRONIC DIASTOLIC (CONGESTIVE) HEART FAILURE Status: Acute (4) Pneumonia Code(s): J18.9 - PNEUMONIA, UNSPECIFIED ORGANISM Status: Acute - Plan Diuretics have been discontinued LVEF 60 to 65%, possible diastolic dysfunction. Patient is on IV cefepime for pneumonia. Pulmonology and cardiology following. Patient is currently intubated and mechanically ventilated.
[2020-02-18] MEDS: Famotidine/PF 20 mg/2ml Vial SLOW IVP SCH (20:34)
[2020-02-19 04:33] LABS: BUN (Urea Nitrogen) 61 mg/dL (9.8-20.1); Calc. Creatinine Clearance 41 mL/min (70-130); Calcium 7.8 mg/dL (7.8-10.44); Glucose 172 mg/dL (83-110)
[2020-02-19 04:35] LABS: Digoxin 1.75 ng/mL (0.8-2.0)
[2020-02-19 04:42] LABS: Anion Gap 18 mmol/L (10-20); Chloride 93 mmol/L (98-107); Potassium 3.7 mmol/L (3.5-5.1); Sodium 149 mmol/L (136-145)
[2020-02-19 04:46] LABS: Carbon Dioxide 42 mmol/L (23-31)
[2020-02-19 04:58] LABS: #Eosinphils 0.1 thou/uL (0.0-0.7); #Lymphocytes 0.3 thou/uL (1.20-3.40); #Monocytes 1.1 thou/uL (0.11-0.59); #Neutrophils 6.9 thou/uL (1.40-6.50); %Eosinophils 1.2 % (0.0-10.0); %Neutrophils 81.9 % (42.0-75.0); Hemoglobin 10.2 g/dL (12.0-16.0); Hypochromia SLIGHT = 6-15 cells (100X) (0-5/hpf); MDiff Complete? YES; Mean Corpuscular HGB CONC 29.8 g/dL (32.0-36.0); Mean Corpuscular Hemoglobin 29.9 pg (27.0-31.0); Mean Platelet Volume 8.8 fL (7.4-10.4); Platelet Count 148 thou/uL (130-400); RBC Distribution Width 13.2 % (11.5-14.5); Red Blood Cell (RBC) Count 3.42 mill/uL (4.20-5.40); White Blood Cell (WBC) Count 8.4 thou/uL (4.8-10.8)
[2020-02-19] MEDS: Dextrose 5% in Water 1,000 ML IV SCH (05:43)
[2020-02-19 07:54] LABS: Actual Bicarbonate (HCO3a) 48.3 mEq/L (22-28); Base Excess (BEa) 21.1 mEq/L (-2.0 to +3.0); Calcium, Ionized (arterial) 1.05 mmol/L (1.12-1.30); Carboxyhemoglobin (COHb) 0.5 gm% (0.0-3.0); Hemoglobin (Hb) 10.7 g/dL (12.0-16.0); O2 Tension (PaO2), arterial 85.6 mmHg (> 60.0); Potassium - ABG Lab 3.66 mmol/L (3.70-5.30); pH, Arterial 7.45 (7.35-7.45)
[2020-02-19 07:55] LABS: CO2 Tension 70.5 mmHg (35.0-45.0)
[2020-02-19 07:56] LABS: ALV-art Gradient 111.475 mmHg (0-20); Puncture Site RRA
[2020-02-19] MEDS: Cefepime 1 GM in Sodium Chloride 0.9% 100 ML IVPB SCH ×2 (08:10→20:54)
[2020-02-19] MEDS: Apixaban 5 MG TAB PO SCH (08:19)
[2020-02-19] MEDS: Digoxin 0.5 MG/2 ML AMP SLOW IVP SCH (08:19)
--- NOTE | 2020-02-19 09:17 | RAD ---
PORTABLE CHEST: Date: 02/19/2020 HISTORY: Respiratory distress. FINDINGS: Endotracheal and NG tubes are in satisfactory position. Bilateral lung infiltrates and pleural change s are all similar to the prior exam. IMPRESSION: Stable exam. POS: OFF
--- NOTE | 2020-02-19 09:51 | PDOC.HOSPP ---
- Subjective Encounter Date: 02/19/20 Encounter Time: 11:00 Subjective: Patient remains intubated, but is awake and interacting. Answers questions by shaking her head yes/no. Daughter at bedside. - Objective Vital Signs & Weight: Vital Signs (12 hours) Temp Pulse Resp BP Pulse Ox 02/19/20 08:19 113 H 02/19/20 08:17 113 H 101/66 02/19/20 08:00 99.7 F H 8 L 02/19/20 07:01 100 02/19/20 06:00 8 L 02/19/20 04:00 98.7 F 8 L 02/19/20 03:47 132 H 02/19/20 02:00 8 L 02/19/20 00:00 98.8 F 8 L 02/18/20 23:47 110 H 101/72 02/18/20 22:00 8 L Weight Admit Weight 158 lb Weight 159 lb 1.6 oz Most Recent Monitor Data Heart Rate from ECG 115 NIBP 110/75 NIBP BP-Mean 86 Respiration from ECG 8 SpO2 100 I&O: 02/18/20 02/19/20 02/20/20 06:59 06:59 06:59 Intake Total 590.5 2031.8 Output Total 1715 910 110 Balance -1124.5 1121.8 -110 Result Diagrams: 02/19/20 03:28 02/19/20 03:28 Hospitalist ROS - Review of Systems ROS unobtainable: due to endotracheal tube - Medication Medications: Active Medications Generic Name Dose Route Start Last Admin Trade Name Freq PRN Reason Stop Dose Admin Apixaban 5 mg 02/15/20 21:00 02/19/20 08:19 Apixaban 5 Mg Tab PO 5 mg BID FADIA Administration Digoxin 0.125 mg 02/19/20 09:00 02/19/20 08:19 Digoxin 0.5 Mg/2 Ml Amp SLOW IVP 0.125 mg DAILY FADIA Administration Famotidine 20 mg 02/15/20 21:00 02/18/20 20:34 Famotidine/Pf 20 Mg/2ml Vial SLOW IVP 20 mg 2100 FADIA Administration Fentanyl Citrate 2,000 mcg/ 100 mls @ 0 mls/hr 02/15/20 18:00 02/17/20 22:37 Sodium Chloride IV 03/16/20 18:00 100 mls INF FADIA Administration Protocol Per Protocol Cefepime HCl 1 gm/ Sodium 100 mls @ 200 mls/hr 02/16/20 21:00 02/19/20 08:10 Chloride IVPB 100 mls Q12HR FADIA Administration Dextrose/Water 1,000 mls @ 50 mls/hr 02/18/20 10:00 02/19/20 05:43 D5w IV 1,000 mls .Q20H FADIA Administration Sodium Chloride 10 ml 02/17/20 21:00 02/19/20 08:40 Flush - Normal Saline 10 Ml Syringe IVF 10 ml Q12HR FADIA Administration - Exam General Appearance: NAD, awake alert ENT: moist mucosa ENT - other findings: ET tube in place Heart: RRR, no murmur, no gallops, no rubs Respiratory: CTAB, no wheezes, no rales, no ronchi Gastrointestinal: soft, non-tender, non-distended, normal bowel sounds Psychiatric: normal affect, normal behavior Hosp A/P - Plan (1) Acute respiratory failure with hypoxia Code(s): J96.01 - ACUTE RESPIRATORY FAILURE WITH HYPOXIA Status: Acute (2) Atrial fibrillation with rapid ventricular response Code(s): I48.91 - UNSPECIFIED ATRIAL FIBRILLATION Status: Acute (3) Acute on chronic diastolic congestive heart failure, NYHA class 3 Code(s): I50.33 - ACUTE ON CHRONIC DIASTOLIC (CONGESTIVE) HEART FAILURE Status: Acute (4) Pneumonia Code(s): J18.9 - PNEUMONIA, UNSPECIFIED ORGANISM Status: Acute - Plan Diuretics have been discontinued LVEF 60 to 65%, possible diastolic dysfunction. Patient is on IV cefepime for pneumonia. Pulmonology and cardiology following. Patient is currently intubated and mechanically ventilated. Plan to possibly extubate tomorrow. Patient does not want to be intubated again should she fail extubation and daughter at bedside is in agreement.
--- NOTE | 2020-02-19 10:13 | PRG ---
DATE OF SERVICE: 02/19/2020 SUBJECTIVE: An 89-year-old female remains intubated in the vent. She is off all sedation. I's and O's have been consistently positive. OBJECTIVE: VITAL SIGNS: Saturations are 98%, pulse 130, blood pressure 110/75, on 40%, rate of 8. CHEST: Decreased breath sounds. No wheezing. CARDIAC: Normal S1, S2. No gallops. ABDOMEN: Soft. LABORATORY DATA: White count 8000, platelet count is normal. PO2 is 85, pCO2 of 70, pH 7.45. Creatinine is normal, BUN is 68, bicarb is 42. ASSESSMENT: 1. Respiratory failure, marked respiratory acidosis. 2. Renal failure, marked metabolic alkalosis. PLAN: Low-dose Diamox initiated. Put on trial of CPAP. X-ray still shows diastolic dysfunction, fluid overload, slow weaning. TIME SPENT: One-half hour of critical care time. Job ID: [id number]
[2020-02-19] MEDS ORDERED: Enoxaparin Sodium 40 MG/0.4 ML SYRINGE SC SCH (11:30)
[2020-02-19] MEDS: Famotidine/PF 20 mg/2ml Vial SLOW IVP SCH (20:53)
[2020-02-19] MEDS: AcetaZOLAMIDE 250 MG TAB PO SCH (20:53)
[2020-02-19] MEDS: Enoxaparin Sodium 40 MG/0.4 ML SYRINGE SC SCH (20:53)
[2020-02-19] MEDS ORDERED: Enoxaparin Sodium 60 MG/0.6 ML SYRINGE SC SCH (21:00)
[2020-02-20] MEDS: Dextrose 5% in Water 1,000 ML IV SCH (01:27)
[2020-02-20 03:36] LABS: #Eosinphils 0.1 thou/uL (0.0-0.7); #Lymphocytes 0.3 thou/uL (1.20-3.40); #Monocytes 1.2 thou/uL (0.11-0.59); #Neutrophils 6.5 thou/uL (1.40-6.50); %Basophils 0.1 % (0.0-1.0); %Eosinophils 1.7 % (0.0-10.0); %Lymphocytes 3.6 % (21.0-51.0); %Monocytes 14.7 % (0.0-10.0); %Neutrophils 79.9 % (42.0-75.0); Hemoglobin 10.3 g/dL (12.0-16.0); Mean Corpuscular HGB CONC 30.6 g/dL (32.0-36.0); Mean Corpuscular Hemoglobin 30.6 pg (27.0-31.0); Mean Platelet Volume 9.4 fL (7.4-10.4); Platelet Count 131 thou/uL (130-400); Red Blood Cell (RBC) Count 3.35 mill/uL (4.20-5.40); White Blood Cell (WBC) Count 8.2 thou/uL (4.8-10.8)
[2020-02-20 03:55] LABS: BUN (Urea Nitrogen) 51 mg/dL (9.8-20.1); Calc. Creatinine Clearance 44 mL/min (70-130); Calcium 7.9 mg/dL (7.8-10.44); Glucose 161 mg/dL (83-110)
[2020-02-20 04:04] LABS: Anion Gap 17 mmol/L (10-20); Chloride 93 mmol/L (98-107); Potassium 4.5 mmol/L (3.5-5.1); Sodium 148 mmol/L (136-145)
[2020-02-20 04:15] LABS: Carbon Dioxide 43 mmol/L (23-31)
[2020-02-20 05:44] VITALS: BMI 24.7
[2020-02-20] MEDS: fentaNYL Citrate/PF 2,000 MCG in Sodium Chloride 0.9% 60 ML IV SCH (06:33)
[2020-02-20 07:08] VITALS: BP 96/77
[2020-02-20 07:10] LABS: Actual Bicarbonate (HCO3a) 50.6 mEq/L (22-28); Base Excess (BEa) 21.7 mEq/L (-2.0 to +3.0); Calcium, Ionized (arterial) 1.07 mmol/L (1.12-1.30); Carboxyhemoglobin (COHb) 0.9 gm% (0.0-3.0); Hemoglobin (Hb) 10.8 g/dL (12.0-16.0); O2 Tension (PaO2), arterial 76.4 mmHg (> 60.0); Potassium - ABG Lab 4.06 mmol/L (3.70-5.30); pH, Arterial 7.39 (7.35-7.45)
[2020-02-20 07:12] LABS: ALV-art Gradient 101.425 mmHg (0-20); CO2 Tension 85.9 mmHg (35.0-45.0); Puncture Site LRA
[2020-02-20] MEDS: Enoxaparin Sodium 40 MG/0.4 ML SYRINGE SC SCH (08:59)
[2020-02-20] MEDS: Cefepime 1 GM in Sodium Chloride 0.9% 100 ML IVPB SCH (08:59)
[2020-02-20] MEDS: Digoxin 0.5 MG/2 ML AMP SLOW IVP SCH (09:00)
[2020-02-20] MEDS: AcetaZOLAMIDE 250 MG TAB PO SCH (09:00)
[2020-02-20] MEDS ORDERED: DC Sedation Protocol FS ONE (10:24)
[2020-02-20] MEDS ORDERED: Morphine 4 MG/ML VIAL SLOW IVP PRN (10:25)
--- NOTE | 2020-02-20 10:45 | PRG ---
DATE OF SERVICE: 02/20/2020 SUBJECTIVE: Stephanie Constantino is an 89-year-old female, awake, alert, and responsive. OBJECTIVE: VITAL SIGNS: Temperature was 99, pulse 108, blood pressure 84/67. Family wants her to be extubated, comfort care. CHEST: Bilateral rhonchi and crackles. CARDIAC: Normal S1, S2. No gallops. ABDOMEN: No masses. NEUROLOGIC: She opens eyes when we speak to her. LABORATORY DATA: White count 8000, H and H 11 and 33, and platelet count 31. PO2 is 76, pCO2 of 83, pH 7.39 on a rate of . Bicarb is 43, BUN is 51. ASSESSMENT AND PLAN: 1. Renal failure, prerenal. 2. Congestive heart failure, pleural effusion. 3. Respiratory failure. 4. Marked metabolic alkalosis. She will be extubated comfort care as per family. One-half hour of critical care time. Job ID: [id number]
[2020-02-20 13:05] VITALS: TEMP 100.2
--- NOTE | 2020-02-20 15:17 | PDOC.DS.DS ---
Provider - Provider Date of Admission: 02/15/20 15:43 Date of Discharge: 02/20/20 Admitting Provider: Travon Hanks MD Consultations: Cardiology (Dr. Camacho), Pulmonary (Dr. Quiñones) Primary Care Physician: Joshua Quiñones MD Course - Hospital Course Hospital Course: Discharge diagnoses: 1. Acute hypoxic respiratory failure 2. Acute on chronic diastolic congestive heart failure NYHA class III 3. Status post intubation and mechanical ventilation during this hospitalization 4. COVID-19 PCR test negative 5. Hypernatremia 6. Hypercarbia 7. Acute kidney injury 8. Pneumonia 9. Atrial fibrillation with rapid ventricular response Hospital course: Patient is a pleasant 89-year-old lady who was admitted to the hospital on February 15, 2020 for acute hypoxic respiratory failure secondary to CHF exacerbation. She was seen by cardiology and pulmonary and critical care medicine services. She was also found to have pneumonia and was in atrial fibrillation with rapid ventricular response. She was intubated and mechanically ventilated. Her cardiac medications were adjusted. She continued to decline. Her daughter was involved in her care. After discussion with the medical team, patient and family wish to have comfort measures only. She is being discharged to inpatient hospice prior to extubation. Many thanks for allowing me to participate in your patient's care. Please feel free to contact me with any questions or concerns. Discharge destination: Inpatient hospice Total amount of time spent coordinating this discharge: 33 minutes Resuscitation Status: 02/16/20 11:39 Resuscitation Status Routine Resuscitation Status: DNAR: NO Resuscitation Discussed with: daughter - Labs Lab Results: 02/20/20 02:53 02/20/20 02:53 Abnormal Lab Results - Last 48 hrs 02/19/20 03:28: Sodium 149 H, Chloride 93 L, Carbon Dioxide 42 H*, BUN 61 H 02/19/20 03:28: RBC 3.42 L, Hgb 10.2 L, Hct 34.3 L, MCV 100.0 H, MCHC 29.8 L, Neutrophils % 81.9 H, Lymphocytes % 4.0 L, Monocytes % 13.0 H, Neutrophils # 6.9 H, Lymphocytes # 0.3 L, Monocytes # 1.1 H 02/19/20 07:21: Bicarbonate Actual 48.3 H, ABG pCO2 70.5 H*, ABG pO2 85.6 H, ABG O2 Content 14.5 L, ABG Base Excess 21.1 H, ABG Hematocrit 31.0 L, ABG Hemoglobin 10.7 L, ABG Methemoglobin 0.00 L, ABG Deoxyhemoglobin 3.5 H, A-a O2 Gradient 111.475 H, Potassium 3.66 L, Ionized Calcium 1.05 L, Chloride 93 L 02/20/20 02:53: Sodium 148 H, Chloride 93 L, Carbon Dioxide 43 H*, BUN 51 H 02/20/20 02:53: RBC 3.35 L, Hgb 10.3 L, Hct 33.6 L, MCV 100.0 H, MCHC 30.6 L, Neutrophils % 79.9 H, Lymphocytes % 3.6 L, Monocytes % 14.7 H, Lymphocytes # 0.3 L, Monocytes # 1.2 H 02/20/20 07:01: Bicarbonate Actual 50.6 H, ABG pCO2 85.9 H*, ABG pO2 76.4 H, ABG O2 Content 14.3 L, ABG Base Excess 21.7 H, ABG Hematocrit 32.0 L, ABG Hemoglobin 10.8 L, ABG Oxyhemoglobin 93.6 L, ABG Deoxyhemoglobin 5.4 H, A-a O2 Gradient 101.425 H, Ionized Calcium 1.07 L, Chloride 93 L Microbiology - Entire Visit 02/15/20 14:13 Venous blood - Left Hand Blood Culture - Preliminary NO GROWTH AT 48 HOURS 02/15/20 14:13 Venous blood - Right Arm Blood Culture - Preliminary NO GROWTH AT 48 HOURS - Physical Exam Vitals: Vital Signs (12 hours) Temp Pulse Resp BP Pulse Ox 02/20/20 12:00 100.2 F H 96 02/20/20 10:00 20 02/20/20 09:00 108 H 02/20/20 08:00 100.4 F H 12 96 02/20/20 06:59 101 H 96/77 02/20/20 06:00 8 L 02/20/20 04:00 99.2 F 10 L Weight Admit Weight 158 lb Weight 157 lb 9.6 oz Most Recent Monitor Data Heart Rate from ECG 117 NIBP 127/72 NIBP BP-Mean 90 Respiration from ECG 21 SpO2 95 Physical Exam: The patient was seen and examined on the day of discharge. She continued to be intubated. Could not complete review of systems. S1 and S2 are heard, regular. Lung examination reveals bilateral crackles. Problem - Problem (1) Acute respiratory failure with hypoxia Code(s): J96.01 - ACUTE RESPIRATORY FAILURE WITH HYPOXIA Status: Acute (2) Atrial fibrillation with rapid ventricular response Code(s): I48.91 - UNSPECIFIED ATRIAL FIBRILLATION Status: Acute (3) Acute on chronic diastolic congestive heart failure, NYHA class 3 Code(s): I50.33 - ACUTE ON CHRONIC DIASTOLIC (CONGESTIVE) HEART FAILURE Status: Acute (4) Pneumonia Code(s): J18.9 - PNEUMONIA, UNSPECIFIED ORGANISM Status: Acute Plan - Discharge Medications Home Medications: Medication Instructions Recorded Confirmed Type Apixaban [Eliquis] 5 mg PO BID 01/18/20 02/16/20 History Furosemide [Lasix] 40 mg PO DAILY 01/18/20 02/16/20 History Gabapentin [Neurontin] 100 mg PO TID 01/18/20 02/16/20 History Magnesium Oxide [Magox 400] 400 mg PO DAILY 01/18/20 02/16/20 History Potassium Chloride [K-Dur] 20 meq PO DAILY 01/18/20 02/16/20 History Digoxin [Lanoxin] 0.125 mg PO DAILY #30 tab 01/21/20 02/16/20 Rx Diltiazem CD [Cardizem CD] 120 mg PO DAILY #30 cap 01/21/20 02/16/20 Rx Metoprolol Tartrate 25 mg PO BID 02/16/20 02/16/20 History Allergies: Penicillins Allergy (Verified 01/17/20 19:56) - Follow up Plan Referrals: Joshua Quiñones MD [Primary Care Provider] - Disposition: [facility] Quality - Care Measures CORE MEASURES:: HF - Stroke/TIA Did you prescribe antithrombotic therapy?: No Specify reason for no DC antithrombotic therapy: Comfort measures Did you prescribe anticoagulant for A Fib/Flutter?: No Specify reason for no DC anticoagulant: Comfort measures Did you prescribe a statin medication?: No Specify reason for no DC statin medication: Comfort measures
--- NOTE | 2020-02-22 14:09 | PQF ---
CLINICAL DOCUMENTATION CLARIFICATION FORM: Dear : Amol Paul MD Date / Time: 02/22/2020 1300 Please exercise your independent, professional judgment in responding to the clarification form. Clinical indicators are provided on the bottom of this form for your review Please check appropriate box(es) to clarify if the following diagnosis has been ruled in our ruled out: (CDI/Coding list diagnosis here) [ x ] Ruled in diagnosis: Type 2 TN [ ] Continue to treat [ x ] Resolved [ ] Ruled out diagnosis: Type 2 TN [ ] Cannot rule out diagnosis: Type 2 TN [ ] Other diagnosis [ ] Unable to determine In addition, please specify: Present on Admission (POA): [ x ] Yes [ ] No [ ] Unable to determine Physician Signature: Date/Time: For continuity of documentation, please document condition throughout progress notes and discharge summary. Thank You. To be completed by CDI/Coding staff for physician review: Present Clinical Indicators - Signs / Symptoms / Labs Results and Location in Medical Record [ x ] This most likely indicates a type 2 myocardial infarction due to her respiratory failure Consultation 02/16/20 (Dr. Camacho) [ x ] Troponin I: .072, .079, .082 on 02/15/20 Chemistry lab results [ x ] Her cardiac enzymes are slightly elevated, but most likely indeterminate. Consultation 02/16/20 (Dr. Camacho) [ x ] T wave abnormality, consider lateral ischemia or digitalis effect Abnormal ECG Electrocardiogram results 02/15/20 Present Risk Factors Results and Location in Medical Record [ x ] Acute hypoxic respiratory failure Discharge Summary 02/20/20 (Dr. Paul) [ x ] Acute on chronic diastolic congestive heart failure Discharge Summary 02/20/20 (Dr. Paul) [ x ] Acute kidney injury Discharge Summary 02/20/20 (Dr. Paul) [ x ] Pneumonia Discharge Summary 02/20/20 (Dr. Paul) Present Treatments Results and Location in Medical Record [ x ] She was seen by cardiology and pulmonary and critical care medicine services Discharge Summary 02/20/20 (Dr. Paul) [ x ] She was intubated and mechanically ventilated. Her cardiac medications were adjusted. Discharge Summary 02/20/20 (Dr. Paul) [ ] [ ] CDS/Grievance Manager Signature: Maryse Lincoln Date/Time: 02/22/2020 1300 This is a permanent part of the Medical Record [facility]
--- NOTE | 2020-02-22 14:36 | PQF ---
CLINICAL DOCUMENTATION CLARIFICATION FORM: Dear : Amol Paul MD Date / Time: 02/22/2020 5460 Please exercise your independent, professional judgment in responding to the clarification form. Clinical indicators are provided on the bottom of this form for your review Please check appropriate box(es): Encephalopathy: Type: [ xYou are ] Acute [ ] Subacute [ ] Chronic Etiology: [ ] Metabolic [ x ] Hypoxic [ ] Unspecified [ ] Other (please specify) [ ] Other diagnosis [ ] Unable to determine In addition, please specify: Present on Admission (POA): [ x ] Yes [ ] No [ ] Unable to determine Physician Signature: Date/Time: For continuity of documentation, please document condition throughout progress notes and discharge summary. Thank You. To be completed by CDI/Coding staff for physician review: Present Clinical Indicators - Signs / Symptoms / Labs Results and Location in Medical Record [ x ] encephalopathy Progress note 02/17 (Dr. Quiñones) [ x ] Acute hypoxic respiratory failure Discharge summary 02/19 (Dr. Paul) [ x ] Hypercarbia Discharge summary 02/19 (Dr. Paul) [ x ] Hypernatremia Discharge summary 02/19 (Dr. Paul) [ x ] Acute kidney injury Discharge summary 02/19 (Dr. Paul) Present Risk Factors Results and Location in Medical Record [ x ] Pneumonia Discharge summary 02/19 (Dr. Paul) [ x ] Acute on chronic diastolic congestive heart failure Discharge summary 02/19 (Dr. Paul) [ x ] Advanced age of 89 Electronic medical record Present Treatments Results and Location in Medical Record [ x ] She was intubated and mechanically ventilated. Her cardiac medications were adjusted Discharge summary 02/19 (Dr. Paul) [ x ] Is and Os have been consistently positive; I/O monitored throughout stay Progress note 02/19 (Dr. Quiñones) [ x ] Lasix Medication Snapshot [ x ] Cefepime Medication Snapshot [ x ] Dextrose 5% in water Medication Snapshot CDS/Proprietary Trader Signature: Maryse Lincoln Date/Time: 02/22/2020 4071 This is a permanent part of the Medical Record [facility]
== END 2020-02-20 13:39 | disposition hospice, inpatient (51) | DRG 280 ==
LOC: ERS 13:23 → CCU 15:43
PROVIDERS: ADMIT Emergency Medicine; ATTEND Internal Medicine
PROC: 5A1955Z Respiratory Ventilation, Greater than 96 Consecutive Hours (ICD-10-PCS; principal; 2020-02-15)
PROC: 0BH17EZ Insertion of Endotracheal Airway into Trachea, Via Natural or Artificial Opening (ICD-10-PCS; 2020-02-15)
PROC: 0D9670Z Drainage of Stomach with Drainage Device, Via Natural or Artificial Opening (ICD-10-PCS; 2020-02-15)
DX: I11.0 Hypertensive heart disease with heart failure (principal); J18.9 Pneumonia, unspecified organism; I21.A1 Myocardial infarction type 2; J96.21 Acute and chronic respiratory failure with hypoxia; J96.22 Acute and chronic respiratory failure with hypercapnia; N17.9 Acute kidney failure, unspecified; B02.29 Other postherpetic nervous system involvement; I47.1 Supraventricular tachycardia; I48.19 Other persistent atrial fibrillation; E87.2 Acidosis; E87.3 Alkalosis; E87.4 Mixed disorder of acid-base balance; G93.1 Anoxic brain damage, not elsewhere classified; E87.1 Hypo-osmolality and hyponatremia; E87.0 Hyperosmolality and hypernatremia; Z66 Do not resuscitate; Z51.5 Encounter for palliative care; Z23 Encounter for immunization; I50.33 Acute on chronic diastolic (congestive) heart failure; I95.9 Hypotension, unspecified; Z99.81 Dependence on supplemental oxygen; Z20.822 Contact with and (suspected) exposure to COVID-19; I25.10 Atherosclerotic heart disease of native coronary artery without angina pectoris; E87.5 Hyperkalemia; I49.3 Ventricular premature depolarization; Z88.0 Allergy status to penicillin; Z90.49 Acquired absence of other specified parts of digestive tract; Z90.710 Acquired absence of both cervix and uterus; Z95.5 Presence of coronary angioplasty implant and graft; Z79.01 Long term (current) use of anticoagulants; Z78.1 Physical restraint status; Z79.899 Other long term (current) drug therapy
CPT/HCPCS: 0240U; 31500; 36415; 36600; 51702; 71045; 80048; 80053; 80162; 81003; 82550; 82553; 82805; 83735; 83880; 84484; 85025; 85610; 85730; 87040; 93005; 93306; 94002; 94003; 96365; 96366; 96374; 96375; 96376; 99292; J0692; J1160; J1650; J1940; J2060; J2270; J2704; J3010; J3490; S0028

== ENCOUNTER 2020-02-20 13:53 | Inpatient (IN) | payer OTHER ==
[2020-02-20] MEDS ORDERED: Lorazepam 2 MG/ML VIAL SLOW IVP PRN (14:45)
[2020-02-20] MEDS ORDERED: Acetaminophen 650 MG Suppository PR PRN (14:45)
[2020-02-20] MEDS ORDERED: Scopolamine 1.5 mg/72 hour Patch TOP PRN (14:45)
[2020-02-20] MEDS ORDERED: Ondansetron PF 4 MG/2 ML Vial IVP PRN (14:45)
[2020-02-20] MEDS ORDERED: Haloperidol Lactate 5 MG/ML VIAL SLOW IVP PRN (14:45)
[2020-02-20 15:46] VITALS: BP 103/68; TEMP 99.7
[2020-02-20] MEDS ORDERED: Morphine 4 MG/ML VIAL SLOW IVP PRN (18:03)
== END 2020-02-20 18:25 | disposition expired | DRG 951 ==
LOC: CDU 13:53 → CCU 13:53 → UNDOADMIN 13:53 → T4-B 15:21
PROVIDERS: ADMIT Family Medicine; ATTEND Family Medicine
DX: Z51.5 Encounter for palliative care (principal); J96.01 Acute respiratory failure with hypoxia; J96.02 Acute respiratory failure with hypercapnia; I50.33 Acute on chronic diastolic (congestive) heart failure; N17.9 Acute kidney failure, unspecified; I25.10 Atherosclerotic heart disease of native coronary artery without angina pectoris; I48.91 Unspecified atrial fibrillation; Z99.81 Dependence on supplemental oxygen; Z95.5 Presence of coronary angioplasty implant and graft; Z79.01 Long term (current) use of anticoagulants; Z88.0 Allergy status to penicillin; Z79.899 Other long term (current) drug therapy; Z90.49 Acquired absence of other specified parts of digestive tract; Z90.710 Acquired absence of both cervix and uterus; E87.5 Hyperkalemia